=== PATIENT | male | born 1960 | race Caucasian/White ===

== ENCOUNTER 2018-08-08 09:45 | Inpatient (IN) | payer MEDICARE ==
[~2018-08-08] VITALS: Ht 172.7 cm; Wt 99.8 kg
[2018-08-08] MEDS ORDERED: JUVEN (09:52)
[2018-08-08] MEDS ORDERED: GLIMEPIRIDE4 MG PO (09:53)
[2018-08-08] MEDS ORDERED: ASPIRIN325 MG PO (09:53)
[2018-08-08] MEDS ORDERED: BACLOFEN10 MG PO (09:54)
[2018-08-08] MEDS ORDERED: CO Q-10100 MG PO (09:54)
[2018-08-08] MEDS ORDERED: CARAFATE1 G PO (09:54)
[2018-08-08] MEDS ORDERED: DEPAKOTE ER500 MG PO (09:55)
[2018-08-08] MEDS ORDERED: OXYBUTYNIN5 MG/BLIST PO (09:55)
[2018-08-08] MEDS ORDERED: COLACE100 MG PO (09:56)
[2018-08-08] MEDS ORDERED: PSYLLIUM (09:57)
[2018-08-08] MEDS ORDERED: FISH OIL 1,0001 CA1 PO (09:57)
[2018-08-08] MEDS ORDERED: GARLIC (09:58)
[2018-08-08] MEDS ORDERED: FLOMAX0.4 MG PO (09:58)
[2018-08-08] MEDS ORDERED: GEMFIBROZIL600 MG PO (09:59)
[2018-08-08] MEDS ORDERED: MUCUS RELIEF400 MG PO (09:59)
[2018-08-08] MEDS ORDERED: LASIX20 MG PO (10:00)
[2018-08-08] MEDS ORDERED: JANUVIA50 MG PO (10:00)
[2018-08-08] MEDS ORDERED: LISINOPRIL2.5 MG PO (10:00)
[2018-08-08] MEDS ORDERED: NEURONTIN 400400 MG PO (10:01)
[2018-08-08] MEDS ORDERED: GLUCOPHAGE1000 MG PO (10:01)
[2018-08-08] MEDS ORDERED: MULTI-DAY VITAM1 TAB PO (10:01)
[2018-08-08] MEDS ORDERED: PROTONIX20 MG PO (10:02)
[2018-08-08] MEDS ORDERED: K-TAB10 MEQ PO (10:02)
[2018-08-08] MEDS ORDERED: PROMOD LIQUID P30 M1 PO (10:02)
[2018-08-08] MEDS ORDERED: RISPERDAL1 MG PO (10:03)
[2018-08-08] MEDS ORDERED: ULTRAM50 MG PO (10:03)
[2018-08-08] MEDS ORDERED: TRAZODONE HCL100 MG PO (10:03)
[2018-08-08] MEDS ORDERED: ROPINIROLE HCL2 MG PO (10:03)
[2018-08-08] MEDS ORDERED: TRAZODONE HCL150 MG PO (10:04)
[2018-08-08] MEDS ORDERED: VITAMIN B-12500 MC1 PO (10:04)
[2018-08-08] MEDS ORDERED: VITAMIN D31000 UNIT PO (10:05)
[2018-08-08] MEDS ORDERED: ASCORBIC ACID500 MG PO (10:05)
[2018-08-08] MEDS ORDERED: ZOLOFT100 MG PO (10:05)
[2018-08-08 10:30] VITALS: BP 108/73
[2018-08-08 10:31] LABS: BASOPHILS 0.2 % (0-2); EOSINOPHILS 0.5 % (0-7); HEMATOCRIT 37.2 % (42.0-54.0); HEMOGLOBIN 12.2 g/dL (13.5-17.5); IMMATURE GRANULOCYTES 0.3 % (0-5); LYMPHOCYTES 18.5 % (15-50); MCH 30.6 pg (26.0-34.0); MCHC 32.8 g/dL (31.0-37.0); MCV 93.2 fL (80.0-100.0); MEAN PLATELET VOLUME 10.4 fL (7.4-10.4); MONOCYTES 7.1 % (2-11); NEUTROPHILS 73.4 % (40-80); PLATELET COUNT 221 10x3/uL (130-400); RBC 3.99 10x6/uL (4.20-6.10); RDW 16.1 % (11.5-14.5); WBC 8.6 10x3/uL (4.8-10.8)
[2018-08-08 10:41] LABS: INR 1.02 (0.85-1.17); PROTIME 12.9 SECONDS (11.6-15.0)
--- NOTE | 2018-08-08 10:48 | NUR ---
OCCULT BLOOD STOOL SPEC NEGATIVE. EDP NOTIFIED. SOILED BREIF CHANGED. JOE CARE PERFORMED PER NURSING STAFF. CLEAN BRIEF PROVIDED. PT SITTING IN SEMI FOWLERS. DENIES NEEDS AT THIS TIME, CALL LIGHT IN REACH.
[2018-08-08 10:50] LABS: ALBUMIN 3.3 g/dL (3.4-5.0); ALKALINE PHOSPHATASE 62 U/L (46-116); ALT (SGPT) 22 U/L (10-68); BILIRUBIN - TOTAL 0.29 mg/dL (0.2-1.3); CALC OSMOLALITY 288 mosm/kg (275-300); CALCIUM 9.1 mg/dL (8.5-10.1); CARBON DIOXIDE 27.3 mmol/L (21.0-32.0); CHLORIDE - SERUM 105 mmol/L (98-107); CREATININE - SERUM 0.8 mg/dL (0.6-1.3); GLUCOSE 108 mg/dL (74-106); POTASSIUM - SERUM 3.8 mmol/L (3.5-5.1); PROTEIN - SERUM 7.9 g/dL (6.4-8.2); SODIUM 143 mmol/L (136-145); UREA NITROGEN 22 mg/dL (7-18); eGFR NON AFRICAN AMERICAN > 90 mL/min (90-120)
[2018-08-08 11:52] LABS: APPEARANCE CLEAR (CLEAR); BILIRUBIN NEGATIVE (NEGATIVE); COLOR YELLOW (YELLOW); GLUCOSE NEGATIVE (NEGATIVE); KETONE NEGATIVE (NEGATIVE); NITRITE NEGATIVE (NEGATIVE); PROTEIN NEGATIVE (NEGATIVE); UROBILINOGEN NORMAL (NORMAL)
--- NOTE | 2018-08-08 12:30 | NUR ---
PT ALERT AND ORIENTED LYING IN BED AT THIS TIME. RESP EVEN AND UNLABORED. CALL LIGHT IN REACH. BLANKETS PROVIDED. LIGHTS DIMMED FOR COMFORT. WILL CONT TO MONITOR.
--- NOTE | 2018-08-08 12:37 | NUR ---
WILL ADMINISTER ORDERED ZITHROMAX ONCE ROCEPHIN IS COMPLETED. DIABETIC LUNCH TRAY ORDERED AT THIS TIME.
[2018-08-08 14:13] VITALS: BP 95/48; BMI 33.5
--- NOTE | 2018-08-08 14:17 | NUR ---
NOTED ON LEFT LATERAL ANKLE A STAGE 2 PRESSURE INJURY MEASURING 1CM X 0.8CM. ON THE LEFT POSTERIOR LOWER LEG IS A STAGE 2 PRESSURE INJURY MEASURING 2CM X 2CM. LEFT BUTTOCK HAS STAGE 2 PRESSURE INJURY MEASURING 2CM X 1.5CM. RIGHT BUTTOCK HAS STAGE 2 PRESSURE INJURY MEASURING 0.5CM X 0.5CM X 0.4CM. RECOMMENDATIONS: MEPILEX AG TO WOUNDS ON LEFT ANKLE AND POSTERIOR LOWER LEG (CHANGE EVERY OTHER DAY) MEPILEX SACRAL DRESSING TO BOTTOM (CHANGE EVERY OTHER DAY) TURN/REPOSITION EVERY 2 HOURS WHILE IN BED AND HOURLY IF UP IN CHAIR/WHEEL CHAIR PERICARE NEEDED DUE TO INCONTINENCE USE CALMOSEPTINE CREAM IF REDNESS OCCURS RELATED TO INCONTINENCE WOUND CARE WILL MONITOR.
--- NOTE | 2018-08-08 15:08 | MORECARE ---
CASE MANAGEMENT DISCHARGE SUMMARY PATIENT: LIZZ CALERO UNIT: [id number] ADM DATE: 08/08/18 AGE: 57 : 58 SEX: M ROOM/BED: D.2214 AUTHOR: DEAN FERREIRA PHYSICIAN: REFERRING PHYSICIAN: UMA BUTT MD DATE OF SERVICE: 08/08/18 Discharge Plan Patient Name: LIZZ CALERO Facility: [facility]:[place] : 1960 Planned Disposition: Anticipated Discharge Date: Discharge Date: Expected LOS: Initial Reviewer: [email or web address] Initial Review Date: 08/08/2018 Generated: 08/08/18 4:08 pm Patient Name: LIZZ CALERO Page 21221 at 1508 All edits/amendments must be made on the electronic document DICTATION DATE: 08/08/181506 AIRPLANE NAVIGATOR: BRITTANI 08/08/18 1507 RPT#: [id number] DC DATE: STATUS: ADM IN [facility] [address] [place] [address] END OF REPORT
--- NOTE | 2018-08-08 18:56 | NUR ---
SANITARY AIDE IN WITH PT TURNING AND CHANGING PT. NO S/S OF ACUTE DISTRESS. CL IN PLACE.
--- NOTE | 2018-08-08 19:01 | NUR ---
LATE ENTRY TO 1730. FSBS-66. GAVE PT PEANUT BUTTER AND CRACKERS. DINNER TRAY CAME SHORTLY AFTER. NO S/S OF ACUTE DISTRESS.C CL IN PLACE.
[2018-08-08 20:54] VITALS: BP 117/51
--- NOTE | 2018-08-08 21:00 | NUR ---
PT SITTING UP IN BED, NO SIGNS OF DISTRESS. ALERT AND ORIENTED. LEFT SIDE PARALYSIS. PULLED OUT IV RIGHT AC. RESITED 22G IV LEFT HAND INFUSING NS @ 125. BS 91. NO COVERAGE PER SS. PT REFUSED SNACK OR JUICE. PT STATES NO OTHER NEEDS OR COMPLAINTS AT THIS TIME. CL IN REACH, WILL CONT TO MONITOR
[2018-08-09 06:18] LABS: BASOPHILS 0.1 % (0-2); EOSINOPHILS 0.6 % (0-7); HEMATOCRIT 32.6 % (42.0-54.0); HEMOGLOBIN 10.4 g/dL (13.5-17.5); IMMATURE GRANULOCYTES 0.3 % (0-5); LYMPHOCYTES 31.9 % (15-50); MCH 30.2 pg (26.0-34.0); MCHC 31.9 g/dL (31.0-37.0); MCV 94.8 fL (80.0-100.0); MEAN PLATELET VOLUME 10.5 fL (7.4-10.4); NEUTROPHILS 57.1 % (40-80); PLATELET COUNT 184 10x3/uL (130-400); RBC 3.44 10x6/uL (4.20-6.10); RDW 16.4 % (11.5-14.5)
[2018-08-09 06:42] LABS: ALBUMIN 2.8 g/dL (3.4-5.0); ALKALINE PHOSPHATASE 43 U/L (46-116); ALT (SGPT) 22 U/L (10-68); CALCIUM 8.2 mg/dL (8.5-10.1); CARBON DIOXIDE 26.2 mmol/L (21.0-32.0); CHLORIDE - SERUM 111 mmol/L (98-107); CREATININE - SERUM 0.6 mg/dL (0.6-1.3); POTASSIUM - SERUM 3.8 mmol/L (3.5-5.1); PROTEIN - SERUM 6.2 g/dL (6.4-8.2); SODIUM 150 mmol/L (136-145); eGFR NON AFRICAN AMERICAN > 90 mL/min (90-120)
[2018-08-09 07:06] LABS: CALC OSMOLALITY 295 mosm/kg (275-300); UREA NITROGEN 13 mg/dL (7-18)
[2018-08-09 07:07] LABS: GLUCOSE 58 mg/dL (74-106)
[2018-08-09 08:51] VITALS: BP 120/57
--- NOTE | 2018-08-09 09:44 | NUR ---
PT LYING IN BED, PT HAS BEEN INCONTINENT OF BOWEL ALL MORNING, ABLE TO USE URINAL, BED IN LOW POSITION, CL IN REACH CONTINUE WITH PLAN OF CARE
[2018-08-09 13:03] VITALS: BP 113/46
[2018-08-09 13:58] VITALS: Ht 172.7 cm; Wt 99.8 kg
--- NOTE | 2018-08-09 14:06 | NUR ---
PT SITTING UP IN BED EATING LUNCH, NO NEEDS VOICED, PT MEPLEX ON BACKSIDE SOILED, CHAANGED AND HAVE EXTRA CHANGE IN PT ROOM
--- NOTE | 2018-08-09 16:13 | NUR ---
PT RESTINGI N BED WITH EYES CLOSED. RESPIRATIONS ARE EVEN AND UNLABORED. PT DENIES RPESENCE OF PAIN AND DYSPNEA. LUNGS SOUNDS ARE DIMINISHED UPON AUSCULTATION. BED IS IN THE LOWEST POSITION. CALL LIGHT AND BEDSIDE TABLE ARE WITHIN REACH. PT DENIES FURTHER NEEDS AT THIS TIME.
[2018-08-09 16:30] VITALS: BP 115/63
--- NOTE | 2018-08-09 17:02 | NUR ---
PT BLOOD SUGAR WAS 64, GAVE PT 2 ORANGE JUICES AND PEANUT BUTTER AND ENCOURAGED PT TO PLEASE EAT ALL HIS DINNER
[2018-08-10 07:50] LABS: CALC OSMOLALITY 281 mosm/kg (275-300); CALCIUM 8.2 mg/dL (8.5-10.1); CARBON DIOXIDE 26.8 mmol/L (21.0-32.0); CHLORIDE - SERUM 108 mmol/L (98-107); CREATININE - SERUM 0.7 mg/dL (0.6-1.3); POTASSIUM - SERUM 3.5 mmol/L (3.5-5.1); SODIUM 143 mmol/L (136-145); UREA NITROGEN 10 mg/dL (7-18); eGFR NON AFRICAN AMERICAN > 90 mL/min (90-120)
[2018-08-10 07:51] LABS: BASOPHILS 0.2 % (0-2); EOSINOPHILS 0.6 % (0-7); HEMOGLOBIN 10.3 g/dL (13.5-17.5); IMMATURE GRANULOCYTES 0.3 % (0-5); LYMPHOCYTES 35.2 % (15-50); MCH 30.3 pg (26.0-34.0); MCHC 32.2 g/dL (31.0-37.0); MCV 94.1 fL (80.0-100.0); MEAN PLATELET VOLUME 10.6 fL (7.4-10.4); MONOCYTES 7.7 % (2-11); PLATELET COUNT 178 10x3/uL (130-400); WBC 6.3 10x3/uL (4.8-10.8)
[2018-08-10 08:12] LABS: GLUCOSE 60 mg/dL (74-106)
--- NOTE | 2018-08-10 08:31 | NUR ---
PT RESTING IN BED. DENIES ANY NEEDS. PT USING URINAL. NO S/S OF ACUTE DISTRESS. CL IN PLACE.
[2018-08-10 08:37] VITALS: BP 124/47
[2018-08-10 12:27] VITALS: BP 127/76
[2018-08-10 16:32] VITALS: BP 115/54
--- NOTE | 2018-08-10 17:06 | MORECARE ---
CASE MANAGEMENT DISCHARGE SUMMARY PATIENT: LIZZ CALERO UNIT: [id number] ADM DATE: 08/09/18 AGE: 57 : 58 SEX: M ROOM/BED: D.2214 AUTHOR: DEAN FERREIRA PHYSICIAN: REFERRING PHYSICIAN: UMA BUTT MD DATE OF SERVICE: 08/10/18 Discharge Plan Patient Name: LIZZ CALERO Facility: [facility]:[place] : 1960 Planned Disposition: Anticipated Discharge Date: Discharge Date: Expected LOS: Initial Reviewer: [email or web address] Initial Review Date: 08/08/2018 Generated: 08/10/18 6:05 pm Comments DCP- Discharge Planning Updated by [email or web address]: Arlyn Sen on 08/10/18 4:[address] CLINICALS SENT TO [place] AT [facility], THEY WILL ACCEPT HIM TOMORROW IF SHE IS STABLE TO DC External Providers External Provider: [facility] Next Contact Date: Service Request Date: Service Type: Resolution: Reviewer: Comments: Last DP export: 08/08/18 2:08 p Patient Name: LIZZ CALERO Page 51957 at 1706 All edits/amendments must be made on the electronic document DICTATION DATE: 08/10/181704 DRYER AND WASHER MECHANIC: BRITTANI 08/10/181704 RPT#: [id number] DC DATE: STATUS: ADM IN [facility] [address] [place] [address] END OF REPORT
--- NOTE | 2018-08-10 18:16 | NUR ---
PT RESTING IN BED WATCHING TV. NO S/S OF ACUTE DISTRESS. CL IN PLACE.
--- NOTE | 2018-08-10 19:15 | NUR ---
RECEIVED CARE FROM DAY NURSE. SITTING UP ON SIDE OF BED. REPORTS NO NEEDS AT THIS TIME. CALL LIGHT AT SIDE. IV INFUSING PER ORDER TO PATENT LEFT HAND.
[2018-08-10 20:00] VITALS: BP 109/52
[2018-08-11] VITALS: BP 110/45
[2018-08-11 04:00] VITALS: BP 111/50
[2018-08-11 05:31] LABS: BASOPHILS 0.2 % (0-2); EOSINOPHILS 1.1 % (0-7); HEMATOCRIT 30.9 % (42.0-54.0); HEMOGLOBIN 9.9 g/dL (13.5-17.5); IMMATURE GRANULOCYTES 0.3 % (0-5); LYMPHOCYTES 28.3 % (15-50); MCH 30.1 pg (26.0-34.0); MCV 93.9 fL (80.0-100.0); MEAN PLATELET VOLUME 10.6 fL (7.4-10.4); MONOCYTES 7.8 % (2-11); NEUTROPHILS 62.3 % (40-80); PLATELET COUNT 171 10x3/uL (130-400); RBC 3.29 10x6/uL (4.20-6.10); RDW 16.1 % (11.5-14.5); WBC 6.5 10x3/uL (4.8-10.8)
[2018-08-11 05:57] LABS: ALBUMIN 2.5 g/dL (3.4-5.0); ALKALINE PHOSPHATASE 48 U/L (46-116); ALT (SGPT) 20 U/L (10-68); BILIRUBIN - TOTAL 0.19 mg/dL (0.2-1.3); CALCIUM 8.1 mg/dL (8.5-10.1); CARBON DIOXIDE 25.1 mmol/L (21.0-32.0); CHLORIDE - SERUM 110 mmol/L (98-107); CREATININE - SERUM 0.7 mg/dL (0.6-1.3); POTASSIUM - SERUM 3.8 mmol/L (3.5-5.1); PROTEIN - SERUM 6.1 g/dL (6.4-8.2); SODIUM 146 mmol/L (136-145); UREA NITROGEN 10 mg/dL (7-18); eGFR NON AFRICAN AMERICAN > 90 mL/min (90-120)
[2018-08-11 06:01] LABS: CALC OSMOLALITY 287 mosm/kg (275-300); GLUCOSE 68 mg/dL (74-106)
--- NOTE | 2018-08-11 07:53 | NUR ---
PT ALERT X 4. BREATH SOUNDS CLEAR BILAT. IV TO LEFT HAND PATENT, DRESSING CLEAN DRY AND INTACT. TRACE EDEMA TO LOWER EXTREMITIES. SCD'S IN PLACE. BED LOW CALL LIGHT IN REACH. NO OTHER NEEDS AT THIS TIME.
[2018-08-11 08:36] LABS: % SATURATION 12 % (15-55); IRON 36 ug/dl (35-150); TOTAL IRON BIND CAPACITY 292 ug/dl (260-445); UNSAT IRON BIND CAPACITY 256 ug/dl (150-375)
[2018-08-11 08:55] VITALS: BP 112/69
[2018-08-11 12:23] VITALS: BP 109/63
[2018-08-11 16:45] VITALS: BP 118/64
--- NOTE | 2018-08-11 19:15 | NUR ---
RECEIVED CARE FROM DAY NURSE. SITTING UP ON SIDE OF BED. REPORTS NO NEEDS A THIS TIME. CALL LIGHT AT SIDE. IV INFUSING PER ORDER TO PATENT LEFT HAND.
[2018-08-11 20:41] VITALS: BP 122/67
[2018-08-12 00:40] VITALS: BP 124/61
--- NOTE | 2018-08-12 04:17 | NUR ---
RESTING ON SIDE WITH EYES CLOSED. NO DISTRESS NOTED.
--- NOTE | 2018-08-12 04:34 | NUR ---
I AGREE WITH THE STOCK REPLENISHER ASSESSMENT.
[2018-08-12 05:01] VITALS: BP 129/58
[2018-08-12 05:38] LABS: CALC OSMOLALITY 287 mosm/kg (275-300); CARBON DIOXIDE 27.4 mmol/L (21.0-32.0); CHLORIDE - SERUM 110 mmol/L (98-107); CREATININE - SERUM 0.6 mg/dL (0.6-1.3); GLUCOSE 74 mg/dL (74-106); POTASSIUM - SERUM 3.3 mmol/L (3.5-5.1); SODIUM 146 mmol/L (136-145); UREA NITROGEN 8 mg/dL (7-18); eGFR NON AFRICAN AMERICAN > 90 mL/min (90-120)
[2018-08-12 05:40] LABS: BASOPHILS 0.2 % (0-2); EOSINOPHILS 1.9 % (0-7); HEMATOCRIT 30.2 % (42.0-54.0); HEMOGLOBIN 9.7 g/dL (13.5-17.5); IMMATURE GRANULOCYTES 0.4 % (0-5); LYMPHOCYTES 37.4 % (15-50); MCH 30.1 pg (26.0-34.0); MCHC 32.1 g/dL (31.0-37.0); MCV 93.8 fL (80.0-100.0); MEAN PLATELET VOLUME 10.8 fL (7.4-10.4); MONOCYTES 7.3 % (2-11); NEUTROPHILS 52.8 % (40-80); PLATELET COUNT 168 10x3/uL (130-400); RBC 3.22 10x6/uL (4.20-6.10); WBC 5.2 10x3/uL (4.8-10.8)
[2018-08-12 05:53] LABS: INR 1.1 (0.85-1.17); PROTIME 13.7 SECONDS (11.6-15.0)
[2018-08-12 08:46] VITALS: BP 124/85
[2018-08-12] MEDS ORDERED: ZITHROMAX250 MG PO (10:34)
[2018-08-12] MEDS ORDERED: K-TAB10 MEQ PO (10:36)
[2018-08-12] MEDS ORDERED: GLIMEPIRIDE2 MG PO (10:37)
--- NOTE | 2018-08-12 11:50 | NUR ---
CALLED REPORT TO ISRRAEL PALAFOX AT [facility] ALL QUESTIONS ANDSWERED
[2018-08-12 13:10] VITALS: BP 117/69
--- NOTE | 2018-08-12 13:30 | NUR ---
PT PICKED P BY JAM FROM [employer], CALLED REPORT TO ISRRAEL
--- NOTE | 2018-08-12 15:58 | MORECARE ---
CASE MANAGEMENT DISCHARGE SUMMARY PATIENT: LIZZ CALERO UNIT: [id number] ADM DATE: 08/09/18 AGE: 57 : 58 SEX: M ROOM/BED: D.2214 AUTHOR: DEAN FERREIRA PHYSICIAN: REFERRING PHYSICIAN: UMA BUTT MD DATE OF SERVICE: 08/12/18 Discharge Plan Patient Name: LIZZ CALERO Facility: [facility]:[place] : 1960 Planned Disposition: Anticipated Discharge Date: Discharge Date: 08/12/2018 Expected LOS: Initial Reviewer: [email or web address] Initial Review Date: 08/08/2018 Generated: 08/12/18 4:58 pm Comments DCP- Discharge Planning Updated by [email or web address]: Desiree Harris on 08/12/18 2:[address] LATE ENTRY 1430 PATIENT WAS NOT DISCHARGED 08/11/18 GI WAS CONSULTED FOR ANEMIA AND POSSIBLE GI BLEED. PATIENT HAD EDG DONE TODAY. MEDICALLY STABLE FO RDISCHARGE TODAY BACK TO [facility]. PRIMARY NURSE SPOKE WITH JAVY ARCOS, TO GIVE REPORT AND TRANSPORTATION ARRANGED. CM SPOKE WITH ISRRAEL. FAXED CLINICAL UPDATE. PATIENT WAS ADMITTED TO A ACADEMIC COACH BED. DCP- Discharge Planning Updated by [email or web address]: Arlyn Sen on 08/10/18 4:[address] CLINICALS SENT TO [place] AT [facility], THEY WILL ACCEPT HIM TOMORROW IF SHE IS STABLE TO DC Last DP export: 08/10/18 4:06 p Patient Name: LIZZ CALERO Page [id number] at 1558 All edits/amendments must be made on the electronic document DICTATION DATE: 08/12/18 1558 FUNERAL HOME GENERAL MANAGER: BRITTANI 08/12/18 1558 RPT#: [id number] DC DATE:08/12/18 STATUS: DIS IN [facility] [address] [place] [address] END OF REPORT
[2018-08-13 12:12] LABS: FOLATE (FOLIC ACID) - SERUM 6.9 ng/mL (>3.0)
--- NOTE | 2018-08-14 12:25 | MORECARE ---
CASE MANAGEMENT DISCHARGE SUMMARY PATIENT: LIZZ CALERO UNIT: [id number] ADM DATE: 08/09/18 AGE: 57 : 58 SEX: M ROOM/BED: D.2214 AUTHOR: DEAN FERREIRA PHYSICIAN: REFERRING PHYSICIAN: UMA BUTT MD DATE OF SERVICE: 08/14/18 Discharge Plan Patient Name: LIZZ CALERO Facility: [facility]:[place] : 1960 Planned Disposition: Anticipated Discharge Date: Discharge Date: 08/12/2018 Expected LOS: 0 Initial Reviewer: [id number] Initial Review Date: 08/08/2018 Generated: 08/14/18 1:25 pm Comments DCP- Discharge Planning Updated by [email or web address]: Desiree Harris on 08/12/18 2:[address] LATE ENTRY 1430 PATIENT WAS NOT DISCHARGED 08/11/18 GI WAS CONSULTED FOR ANEMIA AND POSSIBLE GI BLEED. PATIENT HAD EDG DONE TODAY. MEDICALLY STABLE FO RDISCHARGE TODAY BACK TO [facility]. PRIMARY NURSE SPOKE WITH JAVY ARCOS, TO GIVE REPORT AND TRANSPORTATION ARRANGED. CM SPOKE WITH ISRRAEL. FAXED CLINICAL UPDATE. PATIENT WAS ADMITTED TO A ASSISTED BED. DCP- Discharge Planning Updated by [email or web address]: Arlyn Sen on 08/10/18 4:[address] CLINICALS SENT TO [place] AT [facility], THEY WILL ACCEPT HIM TOMORROW IF SHE IS STABLE TO DC Last DP export: 08/12/18 2:58 p Patient Name: LIZZ CALERO Page [phone] at 1225 All edits/amendments must be made on the electronic document DICTATION DATE: 08/14/18 1225 MOLDER FEEDER: BRITTANI 08/14/18 1225 RPT#: [id number] DC DATE:08/12/18 STATUS: DIS IN [facility] [address] [place] [address] END OF REPORT
== END 2018-08-12 13:40 | DRG 377 ==
LOC: D.ER 09:45 → D.MS 12:25 → OBSVTIME 12:25 → D.ER 12:53 → D.MS 08-09 08:22
PROVIDERS: Emergency Medicine; Family Medicine; Internal Medicine Gastroenterology; ADMIT Legal Medicine
PROC: 0DB68ZX Excision of Stomach, Via Natural or Artificial Opening Endoscopic, Diagnostic (ICD-10-PCS; 2018-08-12)
PROC: 0DB58ZX Excision of Esophagus, Via Natural or Artificial Opening Endoscopic, Diagnostic (ICD-10-PCS; principal; 2018-08-12 08:00)
DX: K25.4 Chronic or unspecified gastric ulcer with hemorrhage (principal); J18.1 Lobar pneumonia, unspecified organism; I69.354 Hemiplegia and hemiparesis following cerebral infarction affecting left non-dominant side; F31.30 Bipolar disorder, current episode depressed, mild or moderate severity, unspecified; E11.9 Type 2 diabetes mellitus without complications; I10 Essential (primary) hypertension; E78.5 Hyperlipidemia, unspecified; K21.9 Gastro-esophageal reflux disease without esophagitis; G30.9 Alzheimer's disease, unspecified; F02.80 Dementia in other diseases classified elsewhere, unspecified severity, without behavioral disturbance, psychotic disturbance, mood disturbance, and anxiety; D64.9 Anemia, unspecified; K20.9 Esophagitis, unspecified

== ENCOUNTER 2019-01-16 14:46 | Inpatient (IN) | payer MEDICARE ==
[~2019-01-16] VITALS: Ht 172.7 cm; Wt 83.0 kg
[~2019-01-16 14:46] MED LIST: ASCORBIC ACID500 MG PO; ASPIRIN325 MG PO; BACLOFEN10 MG PO; CARAFATE1 G PO; CO Q-10100 MG PO; COLACE100 MG PO; DEPAKOTE ER500 MG PO; FISH OIL 1,0001 CA1 PO; FLOMAX0.4 MG PO; GARLIC; GEMFIBROZIL600 MG PO; GLIMEPIRIDE2 MG PO; GLIMEPIRIDE4 MG PO; GLUCOPHAGE1000 MG PO; JANUVIA50 MG PO; JUVEN; K-TAB10 MEQ PO; LASIX20 MG PO; LISINOPRIL2.5 MG PO; MUCUS RELIEF400 MG PO; MULTI-DAY VITAM1 TAB PO; NEURONTIN 400400 MG PO; OXYBUTYNIN5 MG/BLIST PO; PROMOD LIQUID P30 M1 PO; PROTONIX20 MG PO; PSYLLIUM; RISPERDAL1 MG PO; ROPINIROLE HCL2 MG PO; TRAZODONE HCL100 MG PO; TRAZODONE HCL150 MG PO; ULTRAM50 MG PO; VITAMIN B-12500 MC1 PO; VITAMIN D31000 UNIT PO; ZITHROMAX250 MG PO; ZOLOFT100 MG PO
--- NOTE | 2019-01-16 15:15 | NUR ---
UPON ARRIVAL TO THE ED BY EMS STRETCHER, PT HAS OVERWHELMING BODY ODOR WELL VERY POOR HYGIENE. PT ARRIVED FROM [facility], WHERE HE IS A RESIDENT. PT PRESENTED WITH DRIED URINE AND FECES COVERING HIS CLOTHING AND SKIN. PT CLOTHING AND BRIEF WERE SATURATED WITH WASTE THAT APPEARED BOTH OLD AND RECENT. PT APPEARS TO NOT HAVE ROUTINE HYGIENIC CARE PROVIDED AND BASED ON CONDITION AT PRESENTATION, PT IS UNABLE TO PERFORM PERSONAL HYGIENE WITHOUT A CONSIDERABLE AMOUNT OF ASSISTANCE. PT'S CLOTHING WERE IN SUCH POOR CONDITION, WITH MANY HOLES, PT REQUESTED THAT HIS CLOTHING BE THROWN AWAY. PT'S PERINEAL AREA APPEARS RED AND IRRITATED, BED BATH PERFORMED SHORTLY AFTER ARRIVAL. PT'S FINGERNAILS ARE LONG AND UNKEPT, WITH A CONSIDERABLE AMOUNT OF DRIED FECAL MATTER UNDER NAILBEDS AND HIS HANDS. PT'S HANDS REQUIRED BEING SOAKED IN WARM WATER IN ORDER TO REMOVE DRIED FECES. PT STATED THAT HE HAD ASKED FOR HELP TO CLEAN HIMSELF AT HALFWAY, BUT STAFF DID NOT ASSIST HIM. PT STATES HE DOES NOT REMEMBER THE LAST TIME HE WAS BATHED.
--- NOTE | 2019-01-16 15:40 | NUR ---
CHARGE NURSE NOTIFIED OF SUICIDE RISK SCREENING. CHARGE NURSE STATED SHE WILL CALL [facility] [employer].
[2019-01-16 15:42] VITALS: BP 117/61
[2019-01-16 16:19] LABS: BASOPHILS 0.1 % (0-2); EOSINOPHILS 0.3 % (0-7); HEMOGLOBIN 11.2 g/dL (13.5-17.5); IMMATURE GRANULOCYTES 0.4 % (0-5); LYMPHOCYTES 24.2 % (15-50); MCH 31.7 pg (26.0-34.0); MCHC 32.9 g/dL (31.0-37.0); MCV 96.3 fL (80.0-100.0); MEAN PLATELET VOLUME 10.2 fL (7.4-10.4); MONOCYTES 7.9 % (2-11); NEUTROPHILS 67.1 % (40-80); PLATELET COUNT 174 10x3/uL (130-400); RBC 3.53 10x6/uL (4.20-6.10)
[2019-01-16 16:30] LABS: APTT 27.4 SECONDS (22.8-39.4); INR 1.09 (0.85-1.17); PROTIME 13.6 SECONDS (11.6-15.0)
--- NOTE | 2019-01-16 16:31 | NUR ---
DR. AYALA NOTIFIED AND 1:1 SITTER OBSERVATION ORDERED. SITTER AT BEDSIDE. NOTIFIED CHARGE NURSE AND ATTENDING IN REGARDS TO ASSESSMENT FINDINGS. RESOURCES GIVEN TO PATIENT AND SAFETY PLAN INITIATED.
[2019-01-16 16:33] LABS: ALBUMIN 2.9 g/dL (3.4-5.0); ALKALINE PHOSPHATASE 55 U/L (46-116); ALT (SGPT) 32 U/L (10-68); BILIRUBIN - TOTAL 0.29 mg/dL (0.2-1.3); CALC OSMOLALITY 284 mosm/kg (275-300); CALCIUM 8.9 mg/dL (8.5-10.1); CARBON DIOXIDE 29.9 mmol/L (21.0-32.0); CHLORIDE - SERUM 106 mmol/L (98-107); CREATININE - SERUM 0.9 mg/dL (0.6-1.3); GLUCOSE 76 mg/dL (74-106); POTASSIUM - SERUM 3.6 mmol/L (3.5-5.1); PROTEIN - SERUM 6.5 g/dL (6.4-8.2); SODIUM 144 mmol/L (136-145); UREA NITROGEN 11 mg/dL (7-18); eGFR NON AFRICAN AMERICAN > 90 mL/min (90-120)
[2019-01-16 16:46] LABS: CKMB 16.9 U/L (0.0-3.6); TROPONIN-I 0.018 ng/mL (0.000-0.060)
--- NOTE | 2019-01-16 16:50 | NUR ---
PT MOVED TO SAFE ROOM, GARAGE DOOR UP FOR CONTINUOUS MONITORING.
[2019-01-16 16:51] LABS: CREATINE KINASE 3127 UL (21-232)
[2019-01-16 17:16] VITALS: BP 121/55
[2019-01-16 17:31] LABS: APPEARANCE CLEAR (CLEAR); BILIRUBIN NEGATIVE (NEGATIVE); COLOR YELLOW (YELLOW); GLUCOSE NEGATIVE (NEGATIVE); KETONE NEGATIVE (NEGATIVE); NITRITE NEGATIVE (NEGATIVE); PROTEIN NEGATIVE (NEGATIVE); UROBILINOGEN NORMAL (NORMAL)
--- NOTE | 2019-01-16 19:00 | NUR ---
REPORT RECEIVED FROM SUDHEER RN USING SBAR COMMUNICATION. PT RESTING IN ROOM WITH SITTER AT BEDSIDE
--- NOTE | 2019-01-16 19:52 | MORECARE ---
CASE MANAGEMENT DISCHARGE SUMMARY PATIENT: LIZZ CALERO UNIT: [id number] ADM DATE: 01/16/19 AGE: 58 : 58 SEX: M ROOM/BED: D.1206 AUTHOR: DEAN FERREIRA PHYSICIAN: REFERRING PHYSICIAN: CATHERINE PINO MD DATE OF SERVICE: 01/16/19 Discharge Plan Patient Name: LIZZ CALERO Facility: [facility]:[place] : 1960 Planned Disposition: Anticipated Discharge Date: Discharge Date: Expected LOS: Initial Reviewer: [email or web address] Initial Review Date: 01/16/2019 Generated: 01/16/19 8:52 pm Patient Name: LIZZ CALERO Page [id number] at 1951 All edits/amendments must be made on the electronic document DICTATION DATE: 01/16/191950 NURSE PRACTITIONER HOSPITALIST: BRITTANI 01/16/191950 RPT#: [id number] DC DATE: STATUS: ADM IN [facility] [address] [place] [address] END OF REPORT
[2019-01-16 20:04] LABS: CKMB 19.9 U/L (0.0-3.6)
[2019-01-16 20:07] LABS: CREATINE KINASE 4142 UL (21-232)
[2019-01-16 21:06] VITALS: BP 134/78; Ht 172.7 cm; Wt 83.0 kg
[2019-01-16] MEDS ORDERED: ZITHROMAX500 MG (22:26)
[2019-01-16] MEDS ORDERED: ZYPREXA5 MG (22:27)
[2019-01-16] MEDS ORDERED: GLUCOPHAGE500 MG (22:27)
--- NOTE | 2019-01-16 22:50 | NUR ---
RECIEVED REPORT FROM ER. PT ARRIVED IN BED, WITH NO PERSONAL BELONGINGS. VSS, PT APPEARS LETHARGIC, AN NON-VERBAL ON ARRIVAL. HE ONLY STATES, "I DON'T WANT TO RETURN TO THE HALFWAY". PT HAD ONE INCONTINENT BOWEL ON ARRIVAL, SERENITY RN HELP TO CLEAN PT UP. PT IS ON SUICIDAL RISK ONE-ON-ONE WATCH. PT IS A POOR HISTORIAN. ADMISSION ASSESSMENT COMPLETED. WILL CPOC. CL WITHIN REACH, BED IN LOW, SR UP X2.
[2019-01-17] VITALS: BP 100/75
--- NOTE | 2019-01-17 01:48 | NUR ---
PT STILL LETHARGIC, EYES CLOSED. AROUSE TO VOICE AND MILD STIMULUS. STILL ON SUICIDE WATCH. NS INFUSION @ 100MLS/HR. WILL CPOC.
--- NOTE | 2019-01-17 02:35 | NUR ---
PT AWAKE. PERFORMED A SUICIDE RISK REASSESSMENT. ASKED PT IF HE HAS THOUGHT ABOUT COMMITTING SUICIDE SINCE PREVIOUS EVALUATION BY PENITENTIARY AND E.D. PT STATES "NO." PT STATES "I ONLY SAID YES EARLIER BECAUSE, I WAS TIRED OF MY HEALTH AND ALL WHAT WAS GOING ON WITH ME, BUT I AM OK NOW." NOTIFIED VOCATIONAL ADVISER ABOUT PT'S RESPONSE. SITTER AT BEDSIDE WITH ONE-ON-ONE OBS. WILL CTM. TELEMETRY ON, SINUS JOSE.
[2019-01-17 04:00] VITALS: BP 91/56
[2019-01-17 08:00] VITALS: BP 116/58
--- NOTE | 2019-01-17 08:15 | NUR ---
PATIENT SITTING UP IN BED EATING AT THIS TIME WITH IV INTACT. NO COMPLAINTS OR SIGNS OF DISTRESS. CALL LIGHT WITHIN REACH. SITTER AT BEDSIDE.
[2019-01-17 08:54] LABS: BASOPHILS 0.2 % (0-2); EOSINOPHILS 0.9 % (0-7); HEMATOCRIT 34.1 % (42.0-54.0); IMMATURE GRANULOCYTES 0.2 % (0-5); LYMPHOCYTES 24.6 % (15-50); MCH 31.2 pg (26.0-34.0); MCHC 32.3 g/dL (31.0-37.0); MCV 96.6 fL (80.0-100.0); MEAN PLATELET VOLUME 10.7 fL (7.4-10.4); MONOCYTES 8.7 % (2-11); NEUTROPHILS 65.4 % (40-80); PLATELET COUNT 166 10x3/uL (130-400); RBC 3.53 10x6/uL (4.20-6.10); RDW 15.2 % (11.5-14.5); WBC 5.6 10x3/uL (4.8-10.8)
[2019-01-17 09:19] LABS: CKMB 6.2 U/L (0.0-3.6); TROPONIN-I 0.019 ng/mL (0.000-0.060)
[2019-01-17 09:26] LABS: CREATINE KINASE 2340 UL (21-232)
[2019-01-17 10:14] LABS: CKMB 5.7 U/L (0.0-3.6); TROPONIN-I 0.022 ng/mL (0.000-0.060)
[2019-01-17 10:18] LABS: CREATINE KINASE 1945 UL (21-232)
[2019-01-17 10:30] LABS: % SATURATION 23 % (15-55); IRON 58 ug/dl (35-150); TOTAL IRON BIND CAPACITY 247 ug/dl (260-445); UNSAT IRON BIND CAPACITY 189 ug/dl (150-375)
[2019-01-17 10:59] LABS: ALBUMIN 2.6 g/dL (3.4-5.0); ALKALINE PHOSPHATASE 52 U/L (46-116); ALT (SGPT) 34 U/L (10-68); BILIRUBIN - TOTAL 0.27 mg/dL (0.2-1.3); CALC OSMOLALITY 287 mosm/kg (275-300); CALCIUM 8.5 mg/dL (8.5-10.1); CARBON DIOXIDE 25.7 mmol/L (21.0-32.0); CHLORIDE - SERUM 109 mmol/L (98-107); CREATININE - SERUM 0.6 mg/dL (0.6-1.3); GLUCOSE 94 mg/dL (74-106); MAGNESIUM - SERUM 1.7 mg/dL (1.8-2.4); POTASSIUM - SERUM 4.1 mmol/L (3.5-5.1); PROTEIN - SERUM 6.1 g/dL (6.4-8.2); SODIUM 145 mmol/L (136-145); UREA NITROGEN 10 mg/dL (7-18); VALPROIC ACID (DEPAKOTE) 11.5 ug/mL (50.0-100.0); eGFR NON AFRICAN AMERICAN > 90 mL/min (90-120)
--- NOTE | 2019-01-17 13:30 | NUR ---
DR. LUNSFORD STATED THAT HE IS DISCONTINUING THE SITTER FOR THE PATIENT. SAID HE SPOKE WITH PATIENT AND DOESNT FEEL HIS IS ACTIVELY SUICIDAL.
--- NOTE | 2019-01-17 13:35 | MORECARE ---
CASE MANAGEMENT DISCHARGE SUMMARY PATIENT: LIZZ CALERO UNIT: [id number] ADM DATE: 01/16/19 AGE: 58 : 58 SEX: M ROOM/BED: D.1206 AUTHOR: DEAN FERREIRA PHYSICIAN: REFERRING PHYSICIAN: CATHERINE PINO MD DATE OF SERVICE: 01/17/19 Discharge Plan Patient Name: LIZZ CALERO Facility: [facility]:[place] : 1960 Planned Disposition: Anticipated Discharge Date: Discharge Date: Expected LOS: Initial Reviewer: [email or web address] Initial Review Date: 01/16/2019 Generated: 01/17/19 2:35 pm Comments DCP- Discharge Planning Updated by [email or web address]: Mery Baker on 01/17/19 12:[address] CM met with patient to discuss dc planning. Patient has a sitter at bedside. Currently patient is a resident of [facility] in a long-term bed. Emergency contact: [place]. States he has no family. PCP: Dr. Woods. Pharmacy: [facility] provides. DME: w/c. Denies need of additional services. Transportation: [facility]. Hospitalized in past 30 days: No. CM will assist with dc planning/needs. Mery Baker RN, CM Last DP export: 01/16/19 6:52 pm Patient Name: LIZZ CALERO Page 42554 at 1335 All edits/amendments must be made on the electronic document DICTATION DATE: 01/17/19 1335 FRENCH FOLDING MACHINE OPERATOR: BRITTANI 01/17/19 1335 RPT#: [id number] DC DATE: STATUS: ADM IN [facility] [address] [place] [address] END OF REPORT
[2019-01-17 16:11] LABS: CREATINE KINASE 1327 UL (21-232); TROPONIN-I < 0.017 ng/mL (0.000-0.060)
--- NOTE | 2019-01-17 16:30 | NUR ---
PATIENT SITTING UP IN BED EATING AT THIS TIME WITH NO COMPLAINTS OR SIGNS OF DISTRESS. IV INTACT. CALL LIGHT WITHIN REACH.
--- NOTE | 2019-01-17 17:43 | NUR ---
REPORT CALLED TO [facility]. CNAS TO COME GET PATIENT AND MOVE HIM TO MED 2. EXPLAINED TO PATIENT GOING UPSTAIRS BECAUSE OF HIS BRADYCARDIA. VERBALIZED UNDERSTANDING. CALL LIGHT WITHIN REACH.
[2019-01-17 17:44] VITALS: BP 120/54
--- NOTE | 2019-01-17 17:51 | NUR ---
PATIENT SITTING UP IN BED EATING AT THIS TIME WITH NO COMPLAINTS OR SIGNS OF DISTRESS. IV INTACT. CALL LIGHT WITHIN REACH.
--- NOTE | 2019-01-17 19:35 | NUR ---
PATIENT TRASNFERRED TO FLOOR FROM MED 3. PATIENT IS ALERT AND ORIENTED, RESTING COMFORTABLY IN BED. RESPIRATIONS ARE EVEN AND UNLABORED. PATIENT REMAINS ON 2 L NC. CALL LIGHT WITHIN REACH. WILL CPOC.
[2019-01-17 20:00] VITALS: BP 115/58
[2019-01-17 22:02] LABS: CKMB 2.4 U/L (0.0-3.6)
[2019-01-17 22:06] LABS: CREATINE KINASE 1082 UL (21-232); TROPONIN-I < 0.017 ng/mL (0.000-0.060)
[2019-01-18] VITALS: BP 114/52
[2019-01-18 04:00] VITALS: BP 121/57
[2019-01-18 06:00] LABS: BASOPHILS 0.2 % (0-2); EOSINOPHILS 1.6 % (0-7); HEMATOCRIT 31.9 % (42.0-54.0); HEMOGLOBIN 10.5 g/dL (13.5-17.5); IMMATURE GRANULOCYTES 0.2 % (0-5); LYMPHOCYTES 35.1 % (15-50); MCH 31.4 pg (26.0-34.0); MCHC 32.9 g/dL (31.0-37.0); MCV 95.5 fL (80.0-100.0); MONOCYTES 8.7 % (2-11); NEUTROPHILS 54.2 % (40-80); PLATELET COUNT 141 10x3/uL (130-400); RBC 3.34 10x6/uL (4.20-6.10); RDW 14.8 % (11.5-14.5)
[2019-01-18 06:35] LABS: CALC OSMOLALITY 289 mosm/kg (275-300); CALCIUM 8.4 mg/dL (8.5-10.1); CARBON DIOXIDE 26.2 mmol/L (21.0-32.0); CHLORIDE - SERUM 111 mmol/L (98-107); CREATININE - SERUM 0.6 mg/dL (0.6-1.3); GLUCOSE 97 mg/dL (74-106); MAGNESIUM - SERUM 1.7 mg/dL (1.8-2.4); PHOSPHOROUS 3.3 mg/dL (2.5-4.9); SODIUM 146 mmol/L (136-145); UREA NITROGEN 11 mg/dL (7-18); eGFR NON AFRICAN AMERICAN > 90 mL/min (90-120)
--- NOTE | 2019-01-18 07:15 | NUR ---
RECEIVED PT IN BED EYES CLOSED RESP UNLABORED SKIN W/D NAD NOTED
[2019-01-18 08:38] VITALS: BP 132/69
[2019-01-18 11:30] VITALS: BP 135/74
--- NOTE | 2019-01-18 12:19 | NUR ---
FSBS 90
--- NOTE | 2019-01-18 13:43 | MORECARE ---
CASE MANAGEMENT DISCHARGE SUMMARY PATIENT: LIZZ CALERO UNIT: [id number] ADM DATE: 01/16/19 AGE: 58 : 58 SEX: M ROOM/BED: D.5575 AUTHOR: DEAN FERREIRA PHYSICIAN: REFERRING PHYSICIAN: CATHERINE PINO MD DATE OF SERVICE: 01/18/19 Discharge Plan Patient Name: LIZZ CALERO Facility: [facility]:[place] : 1960 Planned Disposition: Nursing Facility ALEXA Cert Anticipated Discharge Date: Discharge Date: Expected LOS: Initial Reviewer: [email or web address] Initial Review Date: 01/16/2019 Generated: 01/18/19 2:43 pm Comments DCP- Discharge Planning Updated by [email or web address]: Mery Baker on 01/17/19 12:[address] CM met with patient to discuss dc planning. Patient has a sitter at bedside. Currently patient is a resident of [facility] in a long-term bed. Emergency contact: [place]. States he has no family. PCP: Dr. Woods. Pharmacy: [facility] provides. DME: w/c. Denies need of additional services. Transportation: [place] van. Hospitalized in past 30 days: No. CM will assist with dc planning/needs. Mery Baker RN, CM External Providers External Provider: [facility] Next Contact Date: 01/18/2019 Service Request Date: Service Type: Resolution: Reviewer: Comments: Last DP export: 01/17/19 12:35 pm Patient Name: LIZZ CALERO Page 05086 at 1343 All edits/amendments must be made on the electronic document DICTATION DATE: 01/18/19 1343 WORKERS COMPENSATION ADJUSTER: BRITTANI 01/18/19 1343 RPT#: [id number] DC DATE: STATUS: ADM IN [facility] [address] [place] [address] END OF REPORT
--- NOTE | 2019-01-18 13:51 | CN ---
PATIENT NAME:LIZZ CALERO MEDICAL RECORD: [id number] : 58 LOCATION:[facility].2115 ADMIT DATE: 01/16/19 ACCOUNT: [id number] CONSULTING PHYSICIAN: MARI AYALA MD REFERRING PHYSICIAN: CATHERINE PINO MD DATE OF CONSULTATION: 01/17/2019 PSYCHIATRIC CONSULTATION IDENTIFYING DATA: The patient is 58 years old and he was admitted to the hospital from a local snf. The patient was brought to the hospital from the snf because of some mental status changes and possible neurologic issues. He was not sitting up straight. He was weak, fatigued, lethargic, and was hypoxic. He subsequently was admitted to the hospital, but concurrently he also reported some suicidal thoughts. He now denies those thoughts, even though he endorses numerous neurovegetative depressive symptoms. MENTAL STATUS EXAMINATION: The patient is awake; alert; and oriented to person, place, time, and situation. His mood is flat. His affect is constricted. Thought processes are circumstantial. Memory, concentration, and abstraction abilities are mildly impaired. He denies any active intent to harm himself or others as well as active psychotic symptoms. ASSESSMENT: Bipolar disorder by history. PLAN: At this time, I am seeing little or no evidence of a dementia. The patient gives me what I thought was a pretty reliable longitudinal history of outpatient psychiatric followup through the [place]. He is coming from a snf where presumably his medications are controlled and administered to him, but he has a Depakote level of 11 even though he takes 2000 mg a day. This is simply not possible. He is either not taking the medicine or they have not been giving it to him. I would certainly endeavor to keep his Depakote level below 120; and if he has not been taking this medication, then perhaps he has not been taking or not receiving others. He is taking a large dose of gabapentin, which may explain why he is acutely sedated if he had not been gradually built up to the 1200 mg dose. The Risperdal could also make him a little sedated. If he continues to have problem being hypoxic and not fully awake, I would certainly recommend stopping the gabapentin and observing him. He was asleep when I came to the room. The sitter told me he had been awake. He was easily arousable and stayed awake while I was speaking to him. He tells me he does not want to kill himself because it would mean he would not get to see his grandchildren anymore and apparently they visit him at the snf and he enjoys it. His interaction seems valid and believable, and based on this, I am going to discontinue the sitter and suicide precautions and would simply recommend that he be treated medically, return to the snf, and have follow up with his outpatient psychiatrist at the [place]. TRANSINT:[id number] Voice Confirmation ID: [id number] DOCUMENT ID: [id number] CONSULT REPORT [id number] LIZZ CALERO, MARI TERRELL at 1351 CC: [id number] DICTATION DATE: 01/17/191425 DIRECTOR AMBULATORY: 01/17/19 1752 ADM IN [facility] [address] [place] [address]
--- NOTE | 2019-01-18 13:59 | MORECARE ---
CASE MANAGEMENT DISCHARGE SUMMARY PATIENT: LIZZ CALERO UNIT: [id number] ADM DATE: 01/16/19 AGE: 58 : 58 SEX: M ROOM/BED: D.4709 AUTHOR: DEAN FERREIRA PHYSICIAN: REFERRING PHYSICIAN: CATHERINE PINO MD DATE OF SERVICE: 01/18/19 Discharge Plan Patient Name: LIZZ CALERO Facility: [facility]:[place] : 1960 Planned Disposition: Nursing Facility ALEXA Cert Anticipated Discharge Date: 01/18/19 Discharge Date: Expected LOS: 2 Initial Reviewer: [email or web address] Initial Review Date: 01/16/2019 Generated: 01/18/19 2:59 pm Comments DCP- Discharge Planning Updated by [email or web address]: Mery Baker on 01/17/19 12:[address] CM met with patient to discuss dc planning. Patient has a sitter at bedside. Currently patient is a resident of [facility] in a long-term bed. Emergency contact: [place]. States he has no family. PCP: Dr. Woods. Pharmacy: [facility] provides. DME: w/c. Denies need of additional services. Transportation: [facility] van. Hospitalized in past 30 days: No. CM will assist with dc planning/needs. Mery Baker RN, CM Last DP export: 01/18/19 12:43 pm Patient Name: LIZZ CALERO Page 42819 at 1356 All edits/amendments must be made on the electronic document DICTATION DATE: 01/18/19 1352 RESEARCH DIETITIAN: BRITTANI 01/18/19 4638 RPT#: [id number] DC DATE: STATUS: ADM IN [facility] [address] [place] [address] END OF REPORT
--- NOTE | 2019-01-18 14:06 | MORECARE ---
CASE MANAGEMENT DISCHARGE SUMMARY PATIENT: LIZZ CALERO UNIT: [id number] ADM DATE: 01/16/19 AGE: 58 : 58 SEX: M ROOM/BED: D.8659 AUTHOR: JHON,DOC PHYSICIAN: REFERRING PHYSICIAN: CATHERINE PINO MD DATE OF SERVICE: 01/18/19 Discharge Plan Patient Name: LIZZ CALERO Facility: [facility]:[place] : 1960 Planned Disposition: Nursing Facility ALEXA Cert Anticipated Discharge Date: 01/18/19 Discharge Date: Expected LOS: 2 Initial Reviewer: [email or web address] Initial Review Date: 01/16/2019 Generated: 01/18/19 3:06 pm Comments DCP- Discharge Planning Updated by [id number]: Sathya Metzger on 01/18/19 1:[address] Patient Name: LIZZ CALERO Encounter No: [id number] : 1960 Primary Insurance: MEDICARE A & B Anticipated DC Date: 01-18-2019 Planned Disposition: Nursing Facility ALEXA Cert External [facility] C[facility] MEDICAID BED DCP follow-up note: CM RECEIVED DISCHARGE ORDERS, FAXED HOSPITAL STAY AND DISCHARGE INFORMATION TO [facility] AT [phone] AND [facility] OF [phone]. CM CALLED EDIE SALINAS [facility] AT [phone], LEFT MESSAGE NOTIFYING OF PT'S DISCHARGE TODAY AND NEED FOR TRANSPORTATION. CM CALLED [facility], , SPOKE TO YUMIKO WHO INFORMED CM THEY WILL ACCEPT AND TRANSFERRED CM TO [email or web address] WHO INFORMED CM THAT PT WILL NEED TO BE READY FOR EXHIBITION CARVER BY 2:30PM TODAY OR VAN TRANSPORT WILL NOT BE AVAILABLE. CM NOTIFIED BEDSIDE NURSE. FOR DISCHARGE, NURSE REPORT TO BE CALLED TO [facility] (ALSO KNOWN [facility]) AT [phone]. ASK FOR BHARATH THE CRUDE UNIT OPERATOR TO ARRANGE VAN EXHIBITION CARVER BY 2:30 PM TODAY. Sathya Metzger, CASE MANAGEMENT DCP- Discharge Planning Updated by [email or web address]: Mery Baker on 01/17/19 12:[address] CM met with patient to discuss dc planning. Patient has a sitter at bedside. Currently patient is a resident of [facility] in a long-term bed. [place]. States he has no family. PCP: Dr. Woods. Pharmacy[place]. DME: w/c. Denies need of additional services. Transportation[place]. Hospitalized in past 30 days: No. CM will assist with dc planning/needs. Mery Baker RN CM Last DP export: 01/18/19 12:59 pm Patient Name: LIZZ CALERO Page [id number] at 1406 All edits/amendments must be made on the electronic document DICTATION DATE: 01/18/191405 POLITICAL ADVISOR: BRITTANI 01/18/19 140 RPT#: [id number] DC DATE: STATUS: ADM IN [facility] [address] [place] [address] END OF REPORT
[2019-01-18 14:48] VITALS: BP 128/64
--- NOTE | 2019-01-18 16:08 | MORECARE ---
CASE MANAGEMENT DISCHARGE SUMMARY PATIENT: LIZZ CALERO UNIT: [id number] ADM DATE: 01/16/19 AGE: 58 : 58 SEX: M ROOM/BED: D.8061 AUTHOR: JHON,DOC PHYSICIAN: REFERRING PHYSICIAN: CATHERINE PINO MD DATE OF SERVICE: 01/18/19 Discharge Plan Patient Name: LIZZ CALERO Facility: [facility]:[place] : 1960 Planned Disposition: Nursing Facility ALEXA Cert Anticipated Discharge Date: 01/18/19 Discharge Date: Expected LOS: 2 Initial Reviewer: [email or web address] Initial Review Date: 01/16/2019 Generated: 01/18/19 5:07 pm Comments DCP- Discharge Planning Updated by [email or web address]: Jeanne Bellamy on 01/18/19 3:[address] CARMEN RN BEDSIDE NURSE CAME TO ME AND STATED THAT NO ONE HAS COME TO TOLL BOOTH OPERATOR THE PATIENT TO TAKE HIM BACK TO THE [facility] YET. I PLACED A CALL TO [facility] AT [phone]. I PRESSED THE OPTION FOR THE NURSES STATION AND RECEIVED NO ANSWER. PRESSED 0 FOR THER TUB OPERATOR AND EXPLAINED I WAS TRYING TO GET AHOLD OF SOMEONE TO FIND OUT ABOUT TOLL BOOTH OPERATOR. EXPLAINED THAT I KNEW SIRENA HAD TO CALL AROUND 1440 BECAUSE THE BEDSIDE NURSE HAD BEEN TRYINGTO GET AHOLD OF THE NURSE TO CALL REPORT AND SET UP TRANSPORT AND WAS UNSUCCESSFUL. HE DID MENTION THAT THE CAR LOADER WAS SITTING NEXT TO THE PERSON HE WAS TALKING TO AT THAT TIME. (I EXPLAINED THIS BECAUSE SHE STATED THAT NO ONE EVER CALLED TO SAY WHAT TIME THE PATIENT NEEDED PICKED UP). I AM CURRENTLY ON HOLD TRYING TO SEE IF THE PATIENT WILL BE PICKED UP TODAY OR NOT. THE TUB OPERATOR STATED SHE WAS GOING TO TRY TO GET AHOLD OF THE CAR LOADER. DCP- Discharge Planning Updated by [id number]: Sathya Metzger on 01/18/19 1:[address] Patient Name: LIZZ CALERO Encounter No: [id number] : 1960 Primary Insurance: MEDICARE A & B Anticipated DC Date: 01-18-2019 Planned Disposition: Nursing Facility ALEXA Cert External Planned Provider: [facility], LONG TERM CARE MEDICAID BED DCP follow-up note: PRICILLA RECEIVED DISCHARGE ORDERS, FAXED HOSPITAL STAY AND DISCHARGE INFORMATION TO [facility] AT [phone] AND EFAX OF [phone]. CM CALLED [facility] AT [phone], LEFT MESSAGE NOTIFYING OF PT'S DISCHARGE TODAY AND NEED FOR TRANSPORTATION. CM CALLED [facility], , SPOKE TO YUMIKO WHO INFORMED CM THEY WILL ACCEPT AND TRANSFERRED CM TO BHARATH, THE CAR LOADER WHO INFORMED CM THAT PT WILL NEED TO BE READY FOR TOLL BOOTH OPERATOR BY 2:30PM TODAY OR VAN TRANSPORT WILL NOT BE AVAILABLE. CM NOTIFIED BEDSIDE NURSE. FOR DISCHARGE, NURSE REPORT TO BE CALLED TO [facility] (ALSO [facility]) AT [phone]. ASK FOR BHARATH THE CAR LOADER TO ARRANGE VAN TOLL BOOTH OPERATOR BY 2:30 PM TODAY. Sathya Metzger, CASE MANAGEMENT DCP- Discharge Planning Updated by [email or web address]: Mery Baker on 01/17/19 12:[address] CM met with patient to discuss dc planning. Patient has a sitter at bedside. Currently patient is a resident of [facility] in a long-term bed. Emergency contact: [place]. States he has no family. PCP: Dr. Woods. Pharmacy: [place] provides. DME: w/c. Denies need of additional services. Transportation: [facility]. Hospitalized in past 30 days: No. CM will assist with dc planning/needs. Mery Baker RN, CM Last DP export: 01/18/19 1:06 pm Patient Name: LIZZ CALERO Page 31001 at 1608 All edits/amendments must be made on the electronic document DICTATION DATE: 01/18/191606 PEDIATRIC ASSISTANT: BRITTANI 01/18/191606 RPT#: [id number] DC DATE: STATUS: ADM IN [facility] [address] [place] [address] END OF REPORT
--- NOTE | 2019-01-18 16:22 | MORECARE ---
CASE MANAGEMENT DISCHARGE SUMMARY PATIENT: LIZZ CALERO UNIT: [id number] ADM DATE: 01/16/19 AGE: 58 : 58 SEX: M ROOM/BED: D.0433 AUTHOR: JHON,DOC PHYSICIAN: REFERRING PHYSICIAN: CATHERINE PINO MD DATE OF SERVICE: 01/18/19 Discharge Plan Patient Name: LIZZ CALERO Facility: [facility]:[place] : 1960 Planned Disposition: Nursing Facility ALEXA Cert Anticipated Discharge Date: 01/18/19 Discharge Date: Expected LOS: 2 Initial Reviewer: [id number] Initial Review Date: 01/16/2019 Generated: 01/18/19 5:22 pm Comments DCP- Discharge Planning Updated by [id number]: Jeanne Bellamy on 01/18/19 3:16 pm KEN MORALES RN BEDSIDE NURSE CAME TO ME AND STATED THAT NO ONE HAS COME TO EVENT MARKETING ASSISTANT THE PATIENT TO TAKE HIM BACK TO THE [facility] YET. I PLACED A CALL TO [employer] AT [phone]. I PRESSED THE OPTION FOR THE NURSES STATION AND RECEIVED NO ANSWER. PRESSED 0 FOR THER ROOMS DIRECTOR AND EXPLAINED I WAS TRYING TO GET AHOLD OF SOMEONE TO FIND OUT ABOUT EVENT MARKETING ASSISTANT. EXPLAINED THAT I KNEW SIRENA HAD TO CALL AROUND 1440 BECAUSE THE BEDSIDE NURSE HAD BEEN TRYINGTO GET AHOLD OF THE NURSE TO CALL REPORT AND SET UP TRANSPORT AND WAS UNSUCCESSFUL. HE DID MENTION THAT THE DESKTOP MANAGER WAS SITTING NEXT TO THE PERSON HE WAS TALKING TO AT THAT TIME. (I EXPLAINED THIS BECAUSE SHE STATED THAT NO ONE EVER CALLED TO SAY WHAT TIME THE PATIENT NEEDED PICKED UP). I AM CURRENTLY ON HOLD TRYING TO SEE IF THE PATIENT WILL BE PICKED UP TODAY OR NOT. THE ROOMS DIRECTOR STATED SHE WAS GOING TO TRY TO GET AHOLD OF THE DESKTOP MANAGER. Appended by Jeanne Bellamy on 01/18/2019 16:16 CDT: THE ROOMS DIRECTOR HAS CAME BACK ON THE PHONE AND ASKED ME TO JUST SEND THE PATIENT BACK BY AMBULANCE. I EXPLAINED THAT WE COULD DO THAT IF THEY SET IT UP, THAT PT DIDN'T MEET CRITERIA AND IF INSURANCE DID NOT PAY FOR THEY RIDE, THE FACILITY WOULD BE RESPONSIBLE AND NOT THE HOSPITAL. SHE HAD TO PLACE ME ON HOLD TO CALL HER CHILI PEPPER GRINDER TO SEE IF THIS WAS POSSIBLE. SHE STATED THAT HER CHILI PEPPER GRINDER HAS APPROVED THE AMBULANCE RIDE BACK TO THE FACILITY AND THAT SHE WOULD TELL THE RECIEVING NURSE DUSTY THAT THIS WAS APPROVED AND BY WHO AND FOR HIM TO BE EXPECTING THE CALL. I WILL PASS THIS INFORMATION TO [facility] MORALES. SPOKE WITH RAFAL ELDRIDGE AND SHE IS UNSURE OF WHO NEEDS TO FILL OUT THE PCS FORM. I WILL HAVE THE NURSE CALL THE [facility] AND HAVE THEM CALL THE AMBULANCE. DCP- Discharge Planning Updated by [id number]: Sathya Metzger on 01/18/19 1:[address] Patient Name: LIZZ CALERO Encounter No: [id number] : 1960 Primary Insurance: MEDICARE A & B Anticipated DC Date: 01-18-2019 Planned Disposition: Nursing Facility ALEXA Cert External Planned Provider: [facility], LONG TERM CARE MEDICAID BED DCP follow-up note: CM RECEIVED DISCHARGE ORDERS, FAXED HOSPITAL STAY AND DISCHARGE INFORMATION TO [facility] AT [phone] AND EFAX OF [phone]. [address] [facility] AT [phone], LEFT MESSAGE NOTIFYING OF PT'S DISCHARGE TODAY AND NEED FOR TRANSPORTATION. CM CALLED [facility], , SPOKE TO YUMIKO WHO INFORMED CM THEY WILL ACCEPT AND TRANSFERRED CM TO BHARATH THE DESKTOP MANAGER WHO INFORMED CM THAT PT WILL NEED TO BE READY FOR EVENT MARKETING ASSISTANT BY 2:30PM TODAY OR VAN TRANSPORT WILL NOT BE AVAILABLE. CM NOTIFIED BEDSIDE NURSE. FOR DISCHARGE, NURSE REPORT TO BE CALLED TO [facility] (ALSO [facility]) AT [phone]. ASK FOR BHARATH THE DESKTOP MANAGER TO ARRANGE VAN EVENT MARKETING ASSISTANT BY 2:30 PM TODAY. Sathya Metzger, CASE MANAGEMENT DCP- Discharge Planning Updated by [id number]: Mery Baker on 01/17/19 12:[address] CM met with patient to discuss dc planning. Patient has a sitter at bedside. Currently patient is a resident of [facility] in a long-term bed. Emergency contact[place]. States he has no family. PCP: Dr. Woods. Pharmacy: [place]. DME: w/c. Denies need of additional services. Transportation: [place]. Hospitalized in past 30 days: No. CM will assist with dc planning/needs. Mery Baker RN CM Last DP export: 01/18/19 3:07 pm Patient Name: LIZZ CALERO Page 56650 at 1622 All edits/amendments must be made on the electronic document DICTATION DATE: 01/18/191620 RIB BENDER: BRITTANI 01/18/191620 RPT#: [id number] DC DATE: STATUS: ADM IN [facility] [address] [place] [address] END OF REPORT
--- NOTE | 2019-01-18 19:34 | NUR ---
PATIENT DISCHARGED WITH EMS.
--- NOTE | 2019-01-21 08:35 | MORECARE ---
CASE MANAGEMENT DISCHARGE SUMMARY PATIENT: LIZZ CALERO UNIT: [id number] ADM DATE: 01/16/19 AGE: 58 : 58 SEX: M ROOM/BED: D.6136 AUTHOR: JHON,DOC PHYSICIAN: REFERRING PHYSICIAN: CATHERINE PINO MD DATE OF SERVICE: 01/21/19 Discharge Plan Patient Name: LIZZ CALERO Facility: [facility]:[place] : 1960 Planned Disposition: Nursing Facility ALEXA Cert Anticipated Discharge Date: 01/18/19 Discharge Date: 01/18/2019 Expected LOS: 2 Initial Reviewer: [id number] Initial Review Date: 01/16/2019 Generated: 01/21/19 9:35 am Comments DCP- Discharge Planning Updated by [id number]: Jeanne Bellamy on 01/18/19 3:16 pm KEN MORALES RN BEDSIDE NURSE CAME TO ME AND STATED THAT NO ONE HAS COME TO COOLING TOWER OPERATOR THE PATIENT TO TAKE HIM BACK TO THE [facility] YET. I PLACED A CALL TO [facility] AT [phone]. I PRESSED THE OPTION FOR THE NURSES STATION AND RECEIVED NO ANSWER. PRESSED 0 FOR THER DAYCARE DIRECTOR AND EXPLAINED I WAS TRYING TO GET AHOLD OF SOMEONE TO FIND OUT ABOUT COOLING TOWER OPERATOR. EXPLAINED THAT I KNEW SIRENA HAD TO CALL AROUND 1440 BECAUSE THE BEDSIDE NURSE HAD BEEN TRYINGTO GET AHOLD OF THE NURSE TO CALL REPORT AND SET UP TRANSPORT AND WAS UNSUCCESSFUL. HE DID MENTION THAT THE BUSHING AND BROACH OPERATOR WAS SITTING NEXT TO THE PERSON HE WAS TALKING TO AT THAT TIME. (I EXPLAINED THIS BECAUSE SHE STATED THAT NO ONE EVER CALLED TO SAY WHAT TIME THE PATIENT NEEDED PICKED UP). I AM CURRENTLY ON HOLD TRYING TO SEE IF THE PATIENT WILL BE PICKED UP TODAY OR NOT. THE DAYCARE DIRECTOR STATED SHE WAS GOING TO TRY TO GET AHOLD OF THE BUSHING AND BROACH OPERATOR. Appended by Jeanne Bellamy on 01/18/2019 16:16 CDT: THE DAYCARE DIRECTOR HAS CAME BACK ON THE PHONE AND ASKED ME TO JUST SEND THE PATIENT BACK BY AMBULANCE. I EXPLAINED THAT WE COULD DO THAT IF THEY SET IT UP, THAT PT DIDN'T MEET CRITERIA AND IF INSURANCE DID NOT PAY FOR THEY RIDE, THE FACILITY WOULD BE RESPONSIBLE AND NOT THE HOSPITAL. SHE HAD TO PLACE ME ON HOLD TO CALL HER COATING MANAGER TO SEE IF THIS WAS POSSIBLE. SHE STATED THAT HER COATING MANAGER HAS APPROVED THE AMBULANCE RIDE BACK TO THE FACILITY AND THAT SHE WOULD TELL THE RECIEVING NURSE DUSTY THAT THIS WAS APPROVED AND BY WHO AND FOR HIM TO BE EXPECTING THE CALL. I WILL PASS THIS INFORMATION TO TONO MORALES. SPOKE WITH RAFAL ELDRIDGE AND SHE IS UNSURE OF WHO NEEDS TO FILL OUT THE PCS FORM. I WILL HAVE THE NURSE CALL THE [facility] AND HAVE THEM CALL THE AMBULANCE. DCP- Discharge Planning Updated by [id number]: Sathya Metzger on 01/18/19 1:[address] Patient Name: LIZZ CALERO Encounter No: [id number] : 1960 Primary Insurance: MEDICARE A & B Anticipated DC Date: 01-18-2019 Planned Disposition: Nursing Facility ALEXA Cert External Planned Provider: [facility], LONG TERM CARE MEDICAID BED DCP follow-up note: CM RECEIVED DISCHARGE ORDERS, FAXED HOSPITAL STAY AND DISCHARGE INFORMATION TO [facility] AT [phone] AND EFAX OF [phone]. CM CALLED [facility] AT [phone], LEFT MESSAGE NOTIFYING OF PT'S DISCHARGE TODAY AND NEED FOR TRANSPORTATION. CM CALLED [facility], , SPOKE TO YUMIKO WHO INFORMED CM THEY WILL ACCEPT AND TRANSFERRED CM TO BHARATH THE BUSHING AND BROACH OPERATOR WHO INFORMED CM THAT PT WILL NEED TO BE READY FOR COOLING TOWER OPERATOR BY 2:30PM TODAY OR VAN TRANSPORT WILL NOT BE AVAILABLE. CM NOTIFIED BEDSIDE NURSE. FOR DISCHARGE, NURSE REPORT TO BE CALLED TO [facility] (ALSO [facility]) AT [phone]. ASK FOR BHARATH THE BUSHING AND BROACH OPERATOR TO ARRANGE VAN COOLING TOWER OPERATOR BY 2:30 PM TODAY. Sathya Metzger, CASE MANAGEMENT DCP- Discharge Planning Updated by [email or web address]: Mery Baker on 01/17/19 12:[address] CM met with patient to discuss dc planning. Patient has a sitter at bedside. Currently patient is a resident of [facility] in a long-term bed. Emergency contact: [place]. States he has no family. PCP: Dr. Woods. Pharmacy: [place] provides. DME: w/c. Denies need of additional services. Transportation: [place] van. Hospitalized in past 30 days: No. CM will assist with dc planning/needs. Mery Baker RN CM Last DP export: 01/18/19 3:22 pm Patient Name: LIZZ CALERO Page 62042 at 0835 All edits/amendments must be made on the electronic document DICTATION DATE: 01/21/19833 BREAD PACKER: BRITTANI 01/21/19833 RPT#: [id number] DC DATE:01/18/19 STATUS: DIS IN [facility] [address] [place] [address] END OF REPORT
== END 2019-01-18 19:35 | DRG 557 ==
LOC: D.ER 14:46 → D.M3 19:04 → D.M2 01-17 19:13
PROVIDERS: Family Medicine; ADMIT Internal Medicine Nephrology; ATTEND Internal Medicine Nephrology
DX: M62.82 Rhabdomyolysis (principal); J96.01 Acute respiratory failure with hypoxia; I69.354 Hemiplegia and hemiparesis following cerebral infarction affecting left non-dominant side; F02.81 Dementia in other diseases classified elsewhere, unspecified severity, with behavioral disturbance; R45.851 Suicidal ideations; F31.9 Bipolar disorder, unspecified; E11.9 Type 2 diabetes mellitus without complications; I10 Essential (primary) hypertension; E78.5 Hyperlipidemia, unspecified; G30.9 Alzheimer's disease, unspecified; K21.9 Gastro-esophageal reflux disease without esophagitis; K59.00 Constipation, unspecified; D64.9 Anemia, unspecified; F43.10 Post-traumatic stress disorder, unspecified; N40.0 Benign prostatic hyperplasia without lower urinary tract symptoms; F17.210 Nicotine dependence, cigarettes, uncomplicated